=== PATIENT | female | born 1990 | race Caucasian/White ===

== ENCOUNTER 2016-08-24 11:04 | Emergency (ER) | payer OTHER ==
[~2016-08-24] VITALS: Ht 157.5 cm; Wt 68.2 kg
[2016-08-24 12:14] VITALS: BP 110/65
[2016-08-24] MEDS ORDERED: ACETAMINOPHEN 325 MG TABLET PO ONE (12:30)
== END 2016-08-24 13:42 | disposition home or self-care (01) ==
LOC: EMS 11:06
DX: H66.93 Otitis media, unspecified, bilateral (principal); R51 Headache; R50.9 Fever, unspecified; R05 Cough
CPT/HCPCS: 99283